=== PATIENT | female | born 1975 | race Caucasian/White ===

== ENCOUNTER → 2024-08-14 11:04 | Outpatient (REF) | payer OTHER, SELFPAY | LOC: WDC 11:04 | PROVIDERS: ATTENDING PHYSICIAN Obstetrics & Gynecology Gynecology | DX: Z12.31 Encounter for screening mammogram for malignant neoplasm of breast (principal) | CPT/HCPCS: 77063; 77067 ==

== ENCOUNTER → 2024-10-05 09:03 | Outpatient (REF) | payer OTHER, SELFPAY ==
[2024-10-05 09:51] LABS: % Basophils 0.7 % (0-2); % Eosinophils 1.4 % (0-6); % Immature Granulocytes 0.2 % (0-0.5); % Lymphocytes 39.3 % (20.5-51.1); % Monocytes 9.4 % (1.7-9.3); Absolute Eosinophils 0.1 10^3/uL (0-0.7); Absolute Lymphocytes 1.6 10^3/uL (1.2-3.4); Absolute Monocytes 0.4 10^3/uL (0.1-0.6); Hemoglobin 13.4 g/dL (12.0-16.0); Mean Corp Hgb Conc. 35.3 g/dL (33.0-37.0); Mean Corpuscular Hgb 32.2 pg (27.0-31.0); Mean Corpuscular Volume 91.3 fL (81.0-99.0); Mean Platelet Volume 9.7 fL (7.4-10.4); Nucleated Red Blood Cells % 0 %; Platelet Count 253 10^3/uL (130-400); Red Blood Cell Count 4.16 10^6/uL (4.20-5.40); Red Cell Dist. Width 11.9 % (11.5-14.5); White Blood Cell Count 4.2 10^3/uL (4.8-10.8)
[2024-10-05 11:08] LABS: ALT (SGPT) 20 U/L (0-35); AST (SGOT) 32 U/L (14-36); Albumin 4.8 g/dl (3.5-5.0); Alkaline Phosphatase 44 U/L (38-126); Blood Urea Nitrogen 13 mg/dl (7-17); Calcium 9.6 mg/dl (8.4-10.2); Carbon Dioxide 25 mmol/L (22-30); Chloride 103 mmol/L (98-107); Glucose 89 mg/dl (70-99); Potassium 4.6 mmol/L (3.5-5.1); Sodium 141 mmol/L (135-145); Total Bilirubin 0.4 mg/dl (0.2-1.3); Total Protein 7.6 g/dl (6.3-8.2); eGFR > 60.00
[2024-10-05 11:20] LABS: Free T4 1.07 ng/dl (0.78-2.19); Luteinizing Hormone 4.65 mIU/ml; Vitamin D, 25-OH*** 46.4 ng/mL (30-80)
[2024-10-05 11:26] LABS: Free T3 3.84 pg/ml (2.77-5.27)
[2024-10-05 11:34] LABS: TSH 1.36 uIU/ml (0.47-4.68)
[2024-10-05 11:35] LABS: Estradiol 61.5 pg/ml
[2024-10-05 12:19] LABS: FSH 11.7 mIU/ml
[2024-10-07 16:24] LABS: IGF-1 Z Score Calculation 0.6; Insulin-like Growth Factor I 160 ng/mL (62-243)
== END ==
LOC: REG 09:03
PROVIDERS: ATTENDING PHYSICIAN Family Medicine Sports Medicine
DX: E55.9 Vitamin D deficiency, unspecified (principal); N95.9 Unspecified menopausal and perimenopausal disorder; R53.83 Other fatigue
CPT/HCPCS: 36415; 80053; 82306; 82627; 82670; 83001; 83002; 84144; 84270; 84305; 84402; 84403; 84439; 84443; 84481; 85025

== ENCOUNTER → 2024-11-26 13:47 | Outpatient (REF) | payer OTHER, SELFPAY | LOC: MRI 3T 13:47 | PROVIDERS: ATTENDING PHYSICIAN Orthopaedic Surgery Hand Surgery | DX: M25.511 Pain in right shoulder (principal) | CPT/HCPCS: 23350; 73040; 73222 ==

== ENCOUNTER → 2025-07-30 10:15 | Outpatient (REF) | payer OTHER, SELFPAY ==
[2025-07-30 15:46] LABS: Vitamin D, 25-OH*** 35.0 ng/mL (30-80)
[2025-07-30 16:13] LABS: Free T3 4.07 pg/ml (2.77-5.27)
[2025-08-02 06:22] LABS: IGF-1 Z Score Calculation 1.1
== END ==
LOC: REG 10:15
PROVIDERS: ATTENDING PHYSICIAN Family Medicine Sports Medicine
DX: N95.9 Unspecified menopausal and perimenopausal disorder (principal)
CPT/HCPCS: 36415; 82306; 82627; 84270; 84305; 84402; 84403; 84481

== ENCOUNTER → 2025-08-15 12:15 | Outpatient (REF) | payer OTHER, SELFPAY | LOC: WDC 12:15 | PROVIDERS: ATTENDING PHYSICIAN Obstetrics & Gynecology Gynecology | DX: Z12.31 Encounter for screening mammogram for malignant neoplasm of breast (principal) | CPT/HCPCS: 77063; 77067 ==